=== PATIENT | female | born 1995 | race Two or more races ===

== ENCOUNTER 2024-03-10 14:34 | Outpatient (CLI) | payer OTHER ==
[~2024-03-10] VITALS: Ht 167.6 cm; Wt 106.9 kg
[2024-03-10] MEDS ORDERED: ACET-897 PO (14:52)
[2024-03-10] MEDS ORDERED: HOME MED LIST COMPLETE! XX SCH (14:55)
[2024-03-10 14:58] VITALS: BP 123/67
[2024-03-10] MEDS: METOCLOPRAMIDE INJ 10MG/2ML VIAL IV ONE (15:28)
[2024-03-10] MEDS: diphenhydrAMINE 50MG/ML VIAL IV ONE (15:28)
[2024-03-10] MEDS: LR 1,000 ML IV ONE (15:29)
[2024-03-10 16:10] LABS: LDH LACTATE DEHYDROGENASE 207 U/L (120-246)
[2024-03-10 16:12] LABS: ALT/SGPT 12 U/L (7.0-40); AST/SGOT 14 U/L (<34); BILIRUBIN,TOTAL 0.4 MG/DL (0.3-1.2); CREATININE FOR GFR 0.49 MG/DL (0.55-1.30); GLOMERULAR FILTRATION RATE > 60.0 (>60); URIC ACID 4.7 MG/DL (3.1-7.8)
[2024-03-10 16:49] LABS: HEMATOCRIT 34.8 % (36.0-47.0); HEMOGLOBIN 11.6 g/dl (12.0-15.5); MEAN CORPUSCULAR HEMOGLOBIN 29.7 pg (27.0-33.0); MEAN CORPUSCULAR HGB CONC 33.3 g/dl (32.0-36.5); MEAN CORPUSCULAR VOLUME 89.2 fl (80.0-96.0); PLATELET COUNT, AUTOMATED 195 10^3/uL (150-450)
[2024-03-10 16:50] LABS: CREATININE,RANDOM URINE < 13.0 MG/DL
[2024-03-10 16:55] LABS: TOTAL PROTEIN,RANDOM URINE < 6.0 MG/DL (0.0-14.0)
[2024-03-10 17:04] VITALS: BP 117/67
== END 2024-03-10 17:45 | disposition home or self-care (01) ==
LOC: M LDO 14:34
PROVIDERS: ATTEND Obstetrics & Gynecology
DX: O26.893 Other specified pregnancy related conditions, third trimester (principal); O99.893 Other specified diseases and conditions complicating puerperium; R51.9 Headache, unspecified; H53.149 Visual discomfort, unspecified; Z3A.29 29 weeks gestation of pregnancy
CPT/HCPCS: 36415; 59025; 81001; 82247; 82570; 83615; 84156; 84450; 84460; 84550; 85027; 87086; 96374; 96375; G0463; J1200; J2765

== ENCOUNTER 2024-05-10 14:59 | Outpatient (CLI) | payer OTHER ==
[~2024-05-10] VITALS: Ht 167.6 cm; Wt 113.6 kg
[~2024-05-10 14:59] MED LIST: ACET-897 PO
[2024-05-10] MEDS ORDERED: NOXI1TAB PO (15:07)
[2024-05-10] MEDS ORDERED: PRENTAB9 PO (15:07)
[2024-05-10 15:10] VITALS: BP 127/79
[2024-05-10] MEDS ORDERED: HOME MED LIST COMPLETE! XX SCH (15:10)
== END 2024-05-10 17:10 | disposition home or self-care (01) ==
LOC: M LDO 14:59
PROVIDERS: ATTEND Advanced Practice Midwife
DX: O36.8130 Decreased fetal movements, third trimester, not applicable or unspecified (principal); O99.213 Obesity complicating pregnancy, third trimester; O26.893 Other specified pregnancy related conditions, third trimester; E66.9 Obesity, unspecified; M45.9 Ankylosing spondylitis of unspecified sites in spine; Z3A.37 37 weeks gestation of pregnancy; Z88.0 Allergy status to penicillin; Z88.1 Allergy status to other antibiotic agents; Z88.2 Allergy status to sulfonamides; Z88.5 Allergy status to narcotic agent

== ENCOUNTER → 2024-09-25 | Outpatient (REF) | payer OTHER ==
[~2024-09-25] MED LIST changes: +NOXI1TAB PO; +PRENTAB9 PO
== END ==
LOC: M LAB REF 16:56
PROVIDERS: ATTEND Family Medicine
DX: N76.0 Acute vaginitis (principal)

== ENCOUNTER → 2024-10-16 | Outpatient (REF) | payer OTHER | LOC: M LAB REF 16:49 | PROVIDERS: ATTEND Family Medicine | DX: N76.0 Acute vaginitis (principal) ==

== ENCOUNTER → 2024-10-31 | Outpatient (REF) | payer OTHER | LOC: M LAB REF 16:54 | PROVIDERS: ATTEND Family Medicine | DX: B37.32 Chronic candidiasis of vulva and vagina (principal) ==

== ENCOUNTER → 2024-11-14 | Outpatient (REF) | payer OTHER | LOC: M LAB REF 17:01 | PROVIDERS: ATTEND Family Medicine | DX: M45.6 Ankylosing spondylitis lumbar region (principal); B37.32 Chronic candidiasis of vulva and vagina ==

== ENCOUNTER → 2024-12-05 | Outpatient (REF) | payer OTHER | LOC: M LAB REF 16:52 | PROVIDERS: ATTEND Family Medicine | DX: B37.32 Chronic candidiasis of vulva and vagina (principal) ==

== ENCOUNTER → 2024-12-24 | Outpatient (CLI) | payer OTHER ==
[2024-12-24 14:34] LABS: HEMOGLOBIN A1c 4.8 % (4.0-6.0)
[2024-12-26 13:02] LABS: HPV APTIMA Not Detected (Not Detected)
== END ==
LOC: M PLALAB 09:26
PROVIDERS: ATTEND Nurse Practitioner Family
DX: E28.2 Polycystic ovarian syndrome (principal); Z12.4 Encounter for screening for malignant neoplasm of cervix; Z11.51 Encounter for screening for human papillomavirus (HPV)

== ENCOUNTER → 2025-03-27 | Outpatient (CLI) | payer OTHER ==
[2025-03-27 11:45] LABS: BASO # 0.0 10^3/uL (0.0-0.2); BASO % 0.7 % (0.0-1.0); EOS # 0.1 10^3/uL (0.0-0.5); EOS % 1.9 % (0.0-3.0); LYMPH # 2.5 10^3/uL (1.5-5.0); LYMPH % 43.0 % (24.0-44.0); MONO # 0.5 10^3/uL (0.0-0.8); MONO % 8.9 % (2.0-8.0); NEUTROPHILS # 2.7 10^3/uL (1.5-8.5); NEUTROPHILS % 45.3 % (36.0-66.0); PLATELET COUNT, AUTOMATED 244 10^3/uL (150-450)
[2025-03-27 12:14] LABS: ALT/SGPT 47 U/L (7.0-40); AST/SGOT 33 U/L (<34); C REACTIVE PROTEIN QUANTITATIV < 0.50 MG/DL (<1.0); CALCIUM LEVEL 9.3 MG/DL (8.5-10.1); CARBON DIOXIDE LEVEL 29 MMOL/L (20-31); CHLORIDE LEVEL 103 MMOL/L (98-107); CREATININE FOR GFR 0.80 MG/DL (0.55-1.30); GLOMERULAR FILTRATION RATE > 90.0 (>60); POTASSIUM SERUM 4.2 MMOL/L (3.5-5.1); SODIUM LEVEL 143 MMOL/L (136-145)
[2025-03-27 13:10] LABS: ERYTHROCYTE SEDIMENTATION RATE 7 mm/hr (0-20)
== END ==
LOC: M LAB 10:21
PROVIDERS: ATTEND Registered Nurse Case Management
DX: Z51.81 Encounter for therapeutic drug level monitoring (principal); Z79.899 Other long term (current) drug therapy

== ENCOUNTER 2025-04-01 10:44 | Outpatient (RCR) | payer OTHER | END 2025-04-10 | LOC: M PT 10:44 | PROVIDERS: ATTEND Nurse Practitioner Family | DX: N95.2 Postmenopausal atrophic vaginitis (principal); N39.41 Urge incontinence ==

== ENCOUNTER → 2025-04-22 | Outpatient (CLI) | payer OTHER | LOC: M RAD 09:50 | PROVIDERS: ATTEND Family Medicine | DX: R30.0 Dysuria (principal); Z87.442 Personal history of urinary calculi ==

== ENCOUNTER → 2025-04-22 | Outpatient (REF) | payer OTHER | LOC: M LAB REF 17:02 | PROVIDERS: ATTEND Family Medicine | DX: R30.0 Dysuria (principal) ==

== ENCOUNTER 2025-04-29 10:42 | Outpatient (RCR) | payer OTHER | END 2025-05-11 | LOC: M PT 10:42 | PROVIDERS: ATTEND Nurse Practitioner Family | DX: N95.2 Postmenopausal atrophic vaginitis (principal); N39.41 Urge incontinence ==

== ENCOUNTER 2025-06-03 13:30 | Outpatient (RCR) | payer OTHER | END 2025-06-10 | LOC: M PT 13:30 | PROVIDERS: ATTEND Nurse Practitioner Family | DX: N95.2 Postmenopausal atrophic vaginitis (principal); N39.41 Urge incontinence ==

== ENCOUNTER 2025-06-19 10:00 | Outpatient (RCR) | payer OTHER | END 2025-07-11 | LOC: M PT 10:00 | PROVIDERS: ATTEND Nurse Practitioner Family | DX: N95.2 Postmenopausal atrophic vaginitis (principal); N39.41 Urge incontinence ==

== ENCOUNTER → 2025-07-02 | Outpatient (CLI) | payer OTHER ==
[2025-07-02 15:51] LABS: LUTEINIZING HORMONE 9.5 mIU/ML
[2025-07-02 15:52] LABS: ESTRADIOL 58.8 PG/ML; FREE T4 1.14 NG/DL (0.89-1.76); PROLACTIN 13.17 NG/ML
[2025-07-04 10:22] LABS: DEHYDROEPIANDROSTERONE SULFATE 131.0 mcg/dL (19-237)
[2025-07-08 15:42] LABS: ANTI MULLERIAN HORMONE 3.55 ng/mL (0.36-10.07)
[2025-07-11 00:08] LABS: TESTOSTERONE FREE (DIRECT) 7.2 pg/mL (0.1-6.4); TESTOSTERONE TOTAL FOR T&D 48.0 ng/dL (2-45)
[2025-07-14 20:12] LABS: 17 HYDROXY PROGESTERONE 140.0 ng/dL
== END ==
LOC: M PLALAB 12:36
PROVIDERS: ATTEND Student in an Organized Health Care Education/Training Program
DX: N97.9 Female infertility, unspecified (principal)

== ENCOUNTER → 2025-07-21 | Outpatient (CLI) | payer OTHER | LOC: M LAB 10:56 | PROVIDERS: ATTEND Midwife | DX: Z34.80 Encounter for supervision of other normal pregnancy, unspecified trimester (principal) ==

== ENCOUNTER → 2025-07-24 | Outpatient (CLI) | payer OTHER | LOC: M LAB 10:49 | PROVIDERS: ATTEND Midwife | DX: Z34.80 Encounter for supervision of other normal pregnancy, unspecified trimester (principal) ==

== ENCOUNTER → 2025-08-21 | Outpatient (REF) | payer OTHER ==
[2025-08-21 14:55] LABS: Trichomonas vaginalis (AMP) NOT DETECTED (NEGATIVE)
[2025-08-21 15:19] LABS: GC DNA AMPLIFICATION NEGATIVE (NEGATIVE)
== END ==
LOC: M PLALAB 11:44
PROVIDERS: ATTEND Student in an Organized Health Care Education/Training Program
DX: Z34.80 Encounter for supervision of other normal pregnancy, unspecified trimester (principal)